=== PATIENT | female | born 1995 | race Two or more races ===

== ENCOUNTER 2017-06-20 06:43 | Emergency (ER) | payer OTHER ==
[~2017-06-20] VITALS: Ht 157.5 cm; Wt 62.6 kg
[2017-06-20 07:27] VITALS: BP 130/82
== END 2017-06-20 09:04 | disposition home or self-care (01) ==
LOC: ER 06:43
DX: F41.9 Anxiety disorder, unspecified (principal); E03.9 Hypothyroidism, unspecified
CPT/HCPCS: 71046; 81025

== ENCOUNTER 2019-12-17 14:46 | Emergency (ER) | payer MEDICAID, OTHER ==
[~2019-12-17] VITALS: Ht 157.5 cm; Wt 73.5 kg
[2019-12-17 20:17] VITALS: BP 126/86
== END 2019-12-17 20:39 | disposition home or self-care (01) ==
LOC: ER 14:46
DX: J30.2 Other seasonal allergic rhinitis (principal); R09.82 Postnasal drip; R05 Cough; F41.9 Anxiety disorder, unspecified